=== PATIENT | female | born 1960 | race Caucasian/White ===

== ENCOUNTER 2023-05-26 08:29 | Emergency (ER) | payer BC, OTHER ==
[~2023-05-26] VITALS: Ht 165.1 cm; Wt 74.7 kg
[2023-05-26 09:18] VITALS: BP 147/84; PULSE 104; RESP 18; TEMP 98; O2SAT 98
[2023-05-26] MEDS ORDERED: CEPH500C PO (10:47)
[2023-05-26] MEDS ORDERED: IBUP-1454 PO (10:47)
== END 2023-05-26 11:00 | disposition home or self-care (01) ==
LOC: ER 08:29
DX: S00.33XA Contusion of nose, initial encounter (principal); S00.83XA Contusion of other part of head, initial encounter; W18.39XA Other fall on same level, initial encounter; Y93.89 Activity, other specified; Y92.89 Other specified places as the place of occurrence of the external cause; Y99.8 Other external cause status
CPT/HCPCS: 70160; 70450